=== PATIENT | female | born 1960 | race Caucasian/White ===

== ENCOUNTER 2017-02-17 16:34 | Emergency (ER) | payer MEDICAID ==
[~2017-02-17 16:34] MED LIST: GLU500 PO; NOVI; [UNRECOGNIZED DRUG - OTHER]
[2017-02-17 18:58] LABS: UA SPECIFIC GRAVITY 1.025 (1.005-1.035); microscopic required? YES; urine erythrocyte NEGATIVE (NEGATIVE)
[2017-02-17 20:18] VITALS: BP 141/72
== END 2017-02-17 20:15 | disposition home or self-care (01) ==
LOC: ED 16:34
PROVIDERS: Emergency Medicine Emergency Medical Services
DX: N39.0 Urinary tract infection, site not specified (principal); E11.9 Type 2 diabetes mellitus without complications; E78.00 Pure hypercholesterolemia, unspecified; Z79.4 Long term (current) use of insulin
CPT/HCPCS: J1885